=== PATIENT | male | born 1940 | race Asian ===

== ENCOUNTER → 2017-11-25 17:23 | Emergency (ER) | payer OTHER | END | disposition home or self-care (01) | DX: I21.4 Non-ST elevation (NSTEMI) myocardial infarction (principal); N18.6 End stage renal disease; I12.0 Hypertensive chronic kidney disease with stage 5 chronic kidney disease or end stage renal disease; I50.9 Heart failure, unspecified; I25.10 Atherosclerotic heart disease of native coronary artery without angina pectoris; Z98.61 Coronary angioplasty status; Z99.2 Dependence on renal dialysis | CPT/HCPCS: 84484; 93005; 99284-25 ==